=== PATIENT | male | born 1965 | race Caucasian/White ===

== ENCOUNTER 2017-07-31 19:58 | Emergency (ER) | payer OTHER, SELFPAY | END 2017-07-31 20:20 | disposition left against medical advice (07) | LOC: ED 19:58 | DX: Z53.21 Procedure and treatment not carried out due to patient leaving prior to being seen by health care provider (principal) ==

== ENCOUNTER 2017-09-01 18:58 | Emergency (ER) | payer OTHER ==
[2017-09-01 19:10] VITALS: BP 143/99; PULSE 96; O2SAT 100
[2017-09-01] MEDS ORDERED: ULTRAM 50 MG PO ONE (19:10)
[2017-09-01] MEDS ORDERED: KEFLEX 500 MG PO ONE (19:11)
[2017-09-01] MEDS ORDERED: KEFLEX 500 MG ONE (19:14)
[2017-09-01] MEDS ORDERED: ULTRAM 50 MG ONE (19:14)
--- NOTE | 2017-09-01 19:17 | ERPHSYRPT ---
- History of Present Illness Time Seen by Provider: 09/01/17 19:03 Source: patient Exam Limitations: no limitations Patient Subjective Stated Complaint: Infected tooth with severe pain Triage Nursing Assessment: Pt A&O x3, only complaint of tooth pain. Trying to get into the dentist but they said they can't do anything as long as it's infected. Bottom right. Physician History: FOR THE PAST 2.5 WEEKS PT HAS HAD INTERMITTENT PAIN IN HIS RIGHT MANDIBULAR CENTRAL INCISOR; FOR THE PAST 3 DAYS REDNESS AND SWELLING AROUND THE SAME TOOTH. PT DENIES FEVER, VOMITING, CHEST PAIN, SHORTNESS OF AIR, CHILLS. Allergies/Adverse Reactions: No Known Drug Allergies Allergy (Verified 05/24/15 16:14) Home Medications: Amoxicillin 500 mg PO BID 05/24/15 [History] Hx Tetanus, Diphtheria Vaccination/Date Given: Yes (JUL 2014) Hx Influenza Vaccination/Date Given: Yes (2014) Hx Pneumococcal Vaccination/Date Given: No - Review of Systems Constitutional: No Fever, No Chills Ears, Nose, & Throat: Mouth Pain Respiratory: No Dyspnea Cardiac: No Chest Pain Abdominal/Gastrointestinal: No Vomiting All Other Systems: Reviewed and Negative - Past Medical History Pertinent Past Medical History: Yes Neurological History: No Pertinent History ENT History: No Pertinent History Cardiac History: No Pertinent History Respiratory History: No Pertinent History Endocrine Medical History: No Pertinent History Musculoskeletal History: Other GI Medical History: No Pertinent History History: No Pertinent History Psycho-Social History: No Pertinent History Male Reproductive Disorders: No Pertinent History - Past Surgical History Past Surgical History: Yes Neuro Surgical History: No Pertinent History Cardiac: No Pertinent History Respiratory: No Pertinent History Gastrointestinal: No Pertinent History Genitourinary: No Pertinent History Musculoskeletal: Orthopedic Surgery Male Surgical History: No Pertinent History Other Surgical History: FINGER AMPUTATION - Social History Smoking Status: Never smoker Exposure to second hand smoke: No Drug Use: none Patient Lives Alone: No - Nursing Vital Signs Nursing Vital Signs: Initial Vital Signs Temperature 97.7 F 09/01/17 19:03 Pulse Rate 96 H 09/01/17 19:03 Blood Pressure 143/99 09/01/17 19:03 O2 Sat by Pulse Oximetry 100 09/01/17 19:03 Pain Scale Pain Intensity 8 - Physical Exam General Appearance: alert Eye Exam: PERRL/EOMI Ears, Nose, Throat Exam: TMs normal, other (MILD ERYTHEMA, EDEMA AND TENDERNESS SURROUNDING THE RIGHT MANDIBULAR CENTRAL INCISOR.) Neck Exam: normal inspection Respiratory Exam: lungs clear Cardiovascular Exam: normal heart sounds Gastrointestinal/Abdomen Exam: normal bowel sounds Back Exam: normal range of motion Extremity Exam: normal inspection, No pedal edema Neurologic Exam: alert, cooperative Skin Exam: warm, dry SpO2 Interpretation: normal SpO2: 100 Oxygen Delivery: Room Air - Course Nursing assessment & vital signs reviewed: Yes Ordered Tests: Medication Summary Generic Name Dose Route Start Last Admin Trade Name Freq PRN Reason Stop Dose Admin Cephalexin HCl 500 mg 09/01/17 19:11 Keflex 500 Mg PO 09/01/17 19:12 STAT ONE Tramadol HCl 50 mg 09/01/17 19:10 Ultram 50 Mg PO 09/01/17 19:11 STAT ONE - Departure Time of Disposition: 19:19 Departure Disposition: Home Clinical Impression: TOOTH ABSCESS Condition: Stable Critical Care Time: No Referrals: DOCTOR,NO FAMILY [Primary Care Provider] - Instructions: Tooth Abscess (DC) Additional Instructions: FOLLOW UP WITH PRIVATE DENTIST TOMORROW. Prescriptions: Tramadol HCl 50 mg [Ultram 50 mg] 50 mg PO Q4H PRN PRN #20 tablet PRN Reason: Pain Cephalexin Monohydrate [Keflex] 500 mg PO TID #30 capsule
== END 2017-09-01 19:26 | disposition home or self-care (01) ==
LOC: ED 18:58
DX: K04.7 Periapical abscess without sinus (principal)
CPT/HCPCS: 99281; 99283; A9270-GY

== ENCOUNTER 2017-09-07 17:28 | Emergency (ER) | payer OTHER ==
[2017-09-07 17:38] VITALS: BP 148/90; PULSE 88; O2SAT 99
--- NOTE | 2017-09-07 17:56 | ERPHSYRPT ---
- History of Present Illness Time Seen by Provider: 09/07/17 17:49 Source: patient Exam Limitations: no limitations Patient Subjective Stated Complaint: dental pain lower right, has "bad" tooth and scheduled for extraction wednesday Triage Nursing Assessment: pt to er c/o dental pain right lower, has dental carries and appointment on wednesday for extraction, states pain has increased Physician History: The patient is a 52-year-old male complaining of dental pain in the lower front incisor or 2 weeks. He has poor dentition on the lowers. He wears a partial. He states he has a dental appointment on Wednesday. He also states he takes ibuprofen and tramadol with good relief. He is taking Keflex without relief. He says he's been taking Keflex for 6 days. He denies fever. His past medical history is significant for poor dentition. Timing/Duration: gradual onset (he), weeks Severity: moderate ENT Location: dental Prearrival Treatment: prescription meds Modifying Factors: Improves With: nothing Associated Symptoms: tooth pain Allergies/Adverse Reactions: No Known Drug Allergies Allergy (Verified 09/07/17 17:38) Hx Tetanus, Diphtheria Vaccination/Date Given: No Hx Influenza Vaccination/Date Given: No Hx Pneumococcal Vaccination/Date Given: No Immunizations Up to Date: No - Review of Systems Constitutional: No Fever, No Chills Eyes: No Symptoms Ears, Nose, & Throat: Loose Teeth Respiratory: No Cough, No Dyspnea Cardiac: No Chest Pain, No Edema, No Syncope Abdominal/Gastrointestinal: No Abdominal Pain, No Nausea, No Vomiting, No Diarrhea Genitourinary Symptoms: No Dysuria Musculoskeletal: No Back Pain, No Neck Pain Skin: No Rash Neurological: No Dizziness, No Focal Weakness, No Sensory Changes Psychological: No Symptoms Endocrine: No Symptoms Hematologic/Lymphatic: No Symptoms Immunological/Allergic: No Symptoms All Other Systems: Reviewed and Negative - Past Medical History Pertinent Past Medical History: No Neurological History: No Pertinent History ENT History: No Pertinent History Cardiac History: No Pertinent History Respiratory History: No Pertinent History Endocrine Medical History: No Pertinent History Musculoskeletal History: Other GI Medical History: No Pertinent History History: No Pertinent History Psycho-Social History: No Pertinent History Male Reproductive Disorders: No Pertinent History - Past Surgical History Past Surgical History: No Neuro Surgical History: No Pertinent History Cardiac: No Pertinent History Respiratory: No Pertinent History Gastrointestinal: No Pertinent History Genitourinary: No Pertinent History Musculoskeletal: Orthopedic Surgery Male Surgical History: No Pertinent History Other Surgical History: FINGER AMPUTATION - Social History Smoking Status: Never smoker Exposure to second hand smoke: No Drug Use: none Patient Lives Alone: No - Nursing Vital Signs Nursing Vital Signs: Initial Vital Signs Temperature 98.7 F 09/07/17 17:33 Pulse Rate 88 09/07/17 17:33 Respiratory Rate 20 09/07/17 17:33 Blood Pressure 148/90 09/07/17 17:33 O2 Sat by Pulse Oximetry 99 09/07/17 17:33 Pain Scale Pain Intensity 7 - Physical Exam General Appearance: no apparent distress, alert Eye Exam: bilateral eye: normal inspection Ear Exam: bilateral ear: auricle normal Nasal Exam: normal inspection Throat Exam: dental tenderness (The patient has 3 teeth on the lower frontal jaw with the tooth on the right being loose and swelling of the gum surrounding the tooth. There is slight amount of blood at the base of the tooth.) Neck Exam: supple Cardiovascular/Respiratory Exam: normal breath sounds, regular rate/rhythm Abdominal Exam: non-tender, soft Neurologic Exam: alert, oriented x 3, sensation nml, No motor deficits Skin Exam: normal color, warm, dry SpO2 Interpretation: normal SpO2: 99 Oxygen Delivery: Room Air - Departure Time of Disposition: 18:07 Departure Disposition: Home Clinical Impression: Pain, dental Condition: Stable Critical Care Time: No Referrals: DOCTOR,NO FAMILY [Primary Care Provider] - Additional Instructions: You have dental pain. You were given Toradol 60 mg by IM in the ER. Take penicillin 500 mg 4 times a day for 10 days. Take tramadol 50 mg every 4-6 hours as needed. You may also take ibuprofen 800 mg every 8 hours as needed. Follow-up with your dentist as scheduled for Wednesday. Prescriptions: Penicillin V Potassium 500 mg PO QID #40 tablet Tramadol HCl 50 mg PO Q4-6HPRN PRN #6 tablet PRN Reason: Pain
[2017-09-07] MEDS ORDERED: TORAdol 30 mg Injection IM ONE (18:06)
[2017-09-07] MEDS ORDERED: TORAdol 30 mg Injection ONE ×2 (18:14→18:15)
== END 2017-09-07 18:35 | disposition home or self-care (01) ==
LOC: ED 17:28
DX: K08.89 Other specified disorders of teeth and supporting structures (principal)
CPT/HCPCS: 96372; 99282; 99284; J1885

== ENCOUNTER 2017-11-10 14:53 | Emergency (ER) | payer OTHER ==
[2017-11-10 15:03] VITALS: BP 142/103; PULSE 91; O2SAT 100
--- NOTE | 2017-11-10 15:11 | ERPHSYRPT ---
- History of Present Illness Time Seen by Provider: 11/10/17 15:03 Source: patient Exam Limitations: no limitations Patient Subjective Stated Complaint: Advil Liquid Gels x4 approximately 4 hours ago. Triage Nursing Assessment: Pt presents to the ED with complaints of phantom pain to right hand. 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 Pt states no new injuries today, states he is due for cortisone injection and has been unable to go get cortisone injection now. No distress noted, no new or worsening symptoms. Cortisone injection scheduled for Wednesday. Physician History: patient with history of chronic right hand pain status post right index finger amputation 9 years ago. Patient sees an orthopedic surgeon who gives him a cortisone injection. Patient states that he has not injured his right hand, but he does use his hands quite a bit at work. Patient was told by previous doctor that he would have arthritis to his amputated area. Patient has been taking ibuprofen for pain. Patient presents to ED wanting tramadol for his chronic pain Occurred: other (many months) Method of Injury: other (no injury noted) Quality: intermittent Severity of Pain-Max: moderate Severity of Pain-Current: mild Extremities Pain Location: 2nd finger: right (Amputated finger) Modifying Factors: Improves With: nothing Associated Symptoms: none Allergies/Adverse Reactions: No Known Drug Allergies Allergy (Verified 09/07/17 17:38) Hx Tetanus, Diphtheria Vaccination/Date Given: Yes Hx Influenza Vaccination/Date Given: Yes Hx Pneumococcal Vaccination/Date Given: Yes Immunizations Up to Date: Yes - Review of Systems Constitutional: No Fever, No Chills Eyes: No Symptoms Ears, Nose, & Throat: No Symptoms Respiratory: No Symptoms, No Cough, No Dyspnea Cardiac: No Symptoms, No Chest Pain, No Edema, No Syncope Abdominal/Gastrointestinal: No Symptoms, No Abdominal Pain, No Nausea, No Vomiting, No Diarrhea Genitourinary Symptoms: No Symptoms, No Dysuria Musculoskeletal: Other (R hand pain), No Back Pain, No Neck Pain Skin: No Symptoms, No Rash Neurological: No Dizziness, No Focal Weakness, No Sensory Changes Psychological: No Symptoms Endocrine: No Symptoms All Other Systems: Reviewed and Negative - Past Medical History Pertinent Past Medical History: No Neurological History: No Pertinent History ENT History: No Pertinent History Cardiac History: No Pertinent History Respiratory History: No Pertinent History Endocrine Medical History: No Pertinent History Musculoskeletal History: Other GI Medical History: No Pertinent History History: No Pertinent History Psycho-Social History: No Pertinent History Male Reproductive Disorders: No Pertinent History - Past Surgical History Past Surgical History: No Neuro Surgical History: No Pertinent History Cardiac: No Pertinent History Respiratory: No Pertinent History Gastrointestinal: No Pertinent History Genitourinary: No Pertinent History Musculoskeletal: Orthopedic Surgery Male Surgical History: No Pertinent History Other Surgical History: FINGER AMPUTATION - Social History Smoking Status: Never smoker Exposure to second hand smoke: No Drug Use: none Patient Lives Alone: No - Nursing Vital Signs Nursing Vital Signs: Initial Vital Signs Temperature 99.0 F 11/10/17 14:58 Pulse Rate 91 H 11/10/17 14:58 Respiratory Rate 16 11/10/17 14:58 Blood Pressure 142/103 11/10/17 14:58 O2 Sat by Pulse Oximetry 100 11/10/17 14:58 Pain Scale Pain Intensity 7 - Physical Exam General Appearance: alert Eyes, Ears, Nose, Throat Exam: moist mucous membranes Neck Exam: non-tender, supple Cardiovascular/Respiratory Exam: chest non-tender, normal breath sounds, regular rate/rhythm, no respiratory distress Abdominal Exam: non-tender, No guarding Back Exam: normal inspection, No vertebral tenderness Shoulder Exam: normal inspection Elbow/Forearm Exam: normal inspection Wrist Exam: normal inspection Hand Exam: no evidence of injury, normal ROM, soft tissue tenderness (there is minimal tenderness to right amputated area of index finger) Neuro/Tendon Exam: normal sensation, normal motor functions Mental Status Exam: alert, oriented x 3, cooperative Skin Exam: normal color, warm, dry SpO2: 100 Oxygen Delivery: Room Air - Course Nursing assessment & vital signs reviewed: Yes - Progress Progress: unchanged Progress Note: 11/10/17 15:14 patient wanting to be prescribed tramadol for pain until he sees his orthopedics M.D. for injection. Review of his prescription showed patient with multiple tramadol prescriptions filled by multiple prescribers. Some prescriptions were within 4-6 days of each other. Patient informed that tramadol will not be prescribed at this time without any signs of trauma or injury. Patient is agreeable to plan Counseled pt/family regarding: diagnosis (all) - Departure Time of Disposition: 15:17 Departure Disposition: Home Clinical Impression: Chronic pain of right hand, Drug-seeking behavior Condition: Stable Critical Care Time: No Referrals: DOCTOR,NO FAMILY [Primary Care Provider] - Instructions: Chronic Pain Additional Instructions: Take Motrin 800 mg every 8 hours with food and/or Tylenol 1 g every 4 hours for pain/swelling. Follow-up with your orthopedics Dr. for further care Return for any problems
== END 2017-11-10 15:27 | disposition home or self-care (01) ==
LOC: ED 14:53
DX: M79.641 Pain in right hand (principal); G89.29 Other chronic pain; Z76.5 Malingerer [conscious simulation]
CPT/HCPCS: 99283

== ENCOUNTER 2018-01-08 21:21 | Emergency (ER) | payer OTHER ==
[2018-01-08 21:37] VITALS: BP 139/93; O2SAT 99
--- NOTE | 2018-01-08 22:00 | ERPHSYRPT ---
- History of Present Illness Time Seen by Provider: 01/08/18 21:57 Source: patient Patient Subjective Stated Complaint: pt is alert and oriented. pt ambulatory with a steady gait. pt comes in with c/o right hand joint pain. pt had right index finger amputated 8 years ago. pt took ibuprofen 400mg at 1800 Triage Nursing Assessment: see above Physician History: pt comes in with c/o right hand joint pain. pt had right index finger amputated 8 years ago. pt took ibuprofen 400mg at 1800 Quality: intermittent Severity of Pain-Max: mild Severity of Pain-Current: mild Extremities Pain Location: hand: right (has index finger amputation 8 years ago) Allergies/Adverse Reactions: No Known Drug Allergies Allergy (Verified 09/07/17 17:38) Hx Tetanus, Diphtheria Vaccination/Date Given: Yes Hx Influenza Vaccination/Date Given: No Hx Pneumococcal Vaccination/Date Given: No Immunizations Up to Date: Yes - Review of Systems Constitutional: No Symptoms Musculoskeletal: Joint Pain (right hand) - Past Medical History Pertinent Past Medical History: No Neurological History: No Pertinent History ENT History: No Pertinent History Cardiac History: No Pertinent History Respiratory History: No Pertinent History Endocrine Medical History: No Pertinent History Musculoskeletal History: Other GI Medical History: No Pertinent History History: No Pertinent History Psycho-Social History: No Pertinent History Male Reproductive Disorders: No Pertinent History - Past Surgical History Past Surgical History: Yes Neuro Surgical History: No Pertinent History Cardiac: No Pertinent History Respiratory: No Pertinent History Gastrointestinal: No Pertinent History Genitourinary: No Pertinent History Musculoskeletal: Orthopedic Surgery Male Surgical History: No Pertinent History Other Surgical History: right index finger amputation. - Social History Smoking Status: Never smoker Exposure to second hand smoke: No Drug Use: none Patient Lives Alone: No - Nursing Vital Signs Nursing Vital Signs: Initial Vital Signs Pulse Rate 108 H 01/08/18 21:22 Respiratory Rate 16 01/08/18 21:22 Blood Pressure 139/93 01/08/18 21:22 O2 Sat by Pulse Oximetry 99 01/08/18 21:22 Pain Scale Pain Intensity [Right Hand] 7 Pain Intensity 7 - Physical Exam General Appearance: no apparent distress Hand Exam: soft tissue tenderness, stiffness, swelling SpO2: 99 Oxygen Delivery: Room Air - Course Nursing assessment & vital signs reviewed: Yes - Progress Progress: unchanged Counseled pt/family regarding: diagnosis, need for follow-up - Departure Time of Disposition: 21:59 Departure Disposition: Home Clinical Impression: Chronic pain of right hand Condition: Stable Critical Care Time: No Referrals: DOCTOR,NO FAMILY [Primary Care Provider] - Instructions: Chronic Pain (DC) Prescriptions: Etodolac 400 mg [Lodine 400 mg] 400 mg PO BID #30 tablet
[2018-01-08 22:11] VITALS: PULSE 98
== END 2018-01-08 22:11 | disposition home or self-care (01) ==
LOC: ED 21:21
DX: M79.641 Pain in right hand (principal)
CPT/HCPCS: 99283